=== PATIENT | female | born 2000 | race African-American/Black ===

== ENCOUNTER 2021-02-07 20:19 | Emergency (ER) | payer OTHER ==
[~2021-02-07] VITALS: Ht 180.3 cm; Wt 71.4 kg
[2021-02-07 20:19] VITALS: BP 109/64
== END 2021-02-07 21:24 | disposition home or self-care (01) ==
LOC: M ED 20:19
DX: Z11.52 Encounter for screening for COVID-19 (principal)
CPT/HCPCS: 99282; U0003